=== PATIENT | male | born 1965 | race Caucasian/White ===

== ENCOUNTER 2016-12-27 18:36 | Emergency (ER) | payer SELFPAY ==
[~2016-12-27] VITALS: Ht 190.5 cm; Wt 97.7 kg
[2016-12-27 19:20] LABS: BLOOD UREA NITROGEN 11 mg/dL (7-18)
[2016-12-27 22:33] VITALS: BP 112/78
== END 2016-12-27 22:34 | disposition home or self-care (01) ==
LOC: ED 20:48
DX: R55 Syncope and collapse (principal)
CPT/HCPCS: 36415; 80048; 82040; 85025; 93005; 99284

== ENCOUNTER 2017-02-13 21:14 | Emergency (ER) | payer OTHER ==
[~2017-02-13] VITALS: Ht 190.5 cm; Wt 98.3 kg
[2017-02-13 21:17] VITALS: BP 114/76
== END 2017-02-13 23:30 | disposition home or self-care (01) ==
LOC: ED 23:20
DX: S80.11XA Contusion of right lower leg, initial encounter (principal); Z88.0 Allergy status to penicillin; W18.09XA Striking against other object with subsequent fall, initial encounter; Y93.89 Activity, other specified; Y92.89 Other specified places as the place of occurrence of the external cause; Y99.8 Other external cause status
CPT/HCPCS: 99284

== ENCOUNTER 2017-05-30 11:01 | Emergency (ER) | payer OTHER ==
[~2017-05-30] VITALS: Ht 190.5 cm; Wt 102.6 kg
[2017-05-30] MEDS ORDERED: ONDANSETRON 2MG/ML, 2ML ONE (12:13)
[2017-05-30] MEDS ORDERED: ACETAMINOPHEN 500 MG TABLET ONE (12:13)
[2017-05-30] MEDS ORDERED: KETOROLAC 30 MG/1 ML ONE (12:13)
[2017-05-30] MEDS ORDERED: KETOROLAC 30 MG/1 ML IVPush ONE (12:30)
[2017-05-30] MEDS ORDERED: ACETAMINOPHEN 500 MG TABLET PO ONE (12:30)
[2017-05-30] MEDS ORDERED: SODIUM CHLORIDE 0.9% 1,000ML IVBOLUS ONE (12:30)
[2017-05-30] MEDS ORDERED: ONDANSETRON 2MG/ML, 2ML IVPush ONE (12:30)
[2017-05-30] MEDS ORDERED: SODIUM CHLORIDE FLUSH 10ML SYR IVF ONE (12:30)
[2017-05-30] MEDS ORDERED: maalox/diphenh/lido/sucralfate 5 ML PO PRN (12:30)
[2017-05-30 12:34] LABS: BASOPHILS # (AUTO) 0.01 x10^3/uL (0-0.1); BASOPHILS % (AUTO) 0 % (0-1); EOSINOPHILS # (AUTO) 0.11 x10^3/uL (0-0.4); EOSINOPHILS % (AUTO) 2 % (1-7); LYMPHOCYTES # (AUTO) 0.98 x10^3/uL (1-3.4); LYMPHOCYTES % (AUTO) 13 % (22-44); MD NO; MEAN CORPUSCULAR HEMOGLOBIN 30.2 pg (27.5-34.5); MEAN CORPUSCULAR HGB CONC 33.9 g/dL (33.2-36.2); MEAN CORPUSCULAR VOLUME 88.8 fL (81-97); MEAN PLATELET VOLUME 9.1 fL (7.4-10.4); MONOCYTES # (AUTO) 0.76 x10^3/uL (0.2-0.8); MONOCYTES % (AUTO) 10 % (2-9); NEUTROPHILS # (AUTO) 5.92 x10^3/uL (1.8-6.8); NEUTROPHILS % (AUTO) 76 % (42-75); PLATELET COUNT 189 x10^3/uL (130-400); RED BLOOD COUNT 5.41 x10^6/uL (4.38-5.82); RED CELL DISTRIBUTION WIDTH 13.2 % (9.4-14.8)
[2017-05-30 12:39] LABS: RAPID INFLUENZA A POSITIVE (Negative); RAPID INFLUENZA B Negative (Negative)
[2017-05-30 12:44] LABS: ALBUMIN 3.7 g/dL (3.4-5.0); ANION GAP 7 mmol/L (5-15); CALCIUM 8.8 mg/dL (8.5-10.1); CHLORIDE 103 mmol/L (98-107)
[2017-05-30 12:47] LABS: ALANINE AMINOTRANSFERASE 29 U/L (12-78); ALKALINE PHOSPHATASE 82 U/L (45-117); BILIRUBIN,TOTAL 1.1 mg/dL (0.2-1.0); CREATININE 0.97 mg/dL (0.7-1.3); TOTAL PROTEIN 7.9 g/dL (6.4-8.2)
[2017-05-30 13:56] VITALS: BP 128/78
== END 2017-05-30 13:59 | disposition home or self-care (01) ==
LOC: ED 13:53
DX: J09.X2 Influenza due to identified novel influenza A virus with other respiratory manifestations (principal)
CPT/HCPCS: 36415; 71010; 80053; 85025; 87400; 96361; 96374; 96375; 99285; J1885; J2405; J7030

== ENCOUNTER 2017-09-09 18:49 | Emergency (ER) | payer OTHER ==
[~2017-09-09] VITALS: Ht 190.5 cm; Wt 106.8 kg
[2017-09-09] MEDS ORDERED: FAMOTIDINE 20 MG/2 ML IVP ONE (19:30)
[2017-09-09] MEDS ORDERED: SODIUM CHLORIDE FLUSH 10ML SYR IVF ONE (19:30)
[2017-09-09] MEDS ORDERED: FAMOTIDINE 20 MG/2 ML ONE (20:22)
[2017-09-09 20:40] LABS: BASOPHILS # (AUTO) 0.03 x10^3/uL (0-0.1); BASOPHILS % (AUTO) 0 % (0-1); EOSINOPHILS # (AUTO) 0.21 x10^3/uL (0-0.4); EOSINOPHILS % (AUTO) 3 % (1-7); LYMPHOCYTES # (AUTO) 2.28 x10^3/uL (1-3.4); LYMPHOCYTES % (AUTO) 30 % (22-44); MD NO; MEAN CORPUSCULAR HEMOGLOBIN 29.6 pg (27.5-34.5); MEAN CORPUSCULAR HGB CONC 33.5 g/dL (33.2-36.2); MEAN CORPUSCULAR VOLUME 88.3 fL (81-97); MEAN PLATELET VOLUME 10.2 fL (7.4-10.4); MONOCYTES # (AUTO) 0.64 x10^3/uL (0.2-0.8); MONOCYTES % (AUTO) 9 % (2-9); NEUTROPHILS # (AUTO) 4.34 x10^3/uL (1.8-6.8); NEUTROPHILS % (AUTO) 58 % (42-75); PLATELET COUNT 181 x10^3/uL (130-400); RED CELL DISTRIBUTION WIDTH 13.7 % (9.4-14.8)
[2017-09-09] MEDS ORDERED: MAALOX/HYOSCYAMINE/LIDOCAINE 45 ML BTL ONE (20:42)
[2017-09-09 20:50] LABS: ALANINE AMINOTRANSFERASE 23 U/L (12-78); ALBUMIN 3.5 g/dL (3.4-5.0); ANION GAP 10 mmol/L (5-15); CALCIUM 8.9 mg/dL (8.5-10.1); CHLORIDE 104 mmol/L (98-107); CREATININE 1.07 mg/dL (0.7-1.3)
[2017-09-09 20:52] LABS: ALKALINE PHOSPHATASE 69 U/L (45-117); BILIRUBIN,TOTAL 0.3 mg/dL (0.2-1.0); TOTAL PROTEIN 7.2 g/dL (6.4-8.2)
[2017-09-09] MEDS ORDERED: MAALOX/HYOSCYAMINE/LIDOCAINE 45 ML BTL PO ONE (21:00)
[2017-09-09 21:53] VITALS: BP 119/74
== END 2017-09-09 21:56 | disposition home or self-care (01) ==
LOC: ED 21:10
DX: K25.7 Chronic gastric ulcer without hemorrhage or perforation (principal); Z87.19 Personal history of other diseases of the digestive system
CPT/HCPCS: 36415; 76700; 80053; 83690; 85025; 96374; S0028

== ENCOUNTER → 2020-04-20 | Outpatient (CLI) | payer MEDICAID ==
[~2020-04-20] MED LIST: CYAN1TAB29 PO; OMEP20TA62 PO; PANT40TA6 PO; cholesterol med PO
== END | disposition home or self-care (01) ==
LOC: RAD 15:44
PROVIDERS: ATTEND Internal Medicine Gastroenterology
DX: R10.13 Epigastric pain (principal); R11.10 Vomiting, unspecified
CPT/HCPCS: 74220

== ENCOUNTER 2020-06-14 15:23 | Emergency (ER) | payer MEDICAID ==
[~2020-06-14] VITALS: Ht 190.5 cm; Wt 109.1 kg
[2020-06-14] MEDS ORDERED: DIPHENHYDRAMINE 50 MG/ML, 1ML ONE (15:59)
[2020-06-14] MEDS ORDERED: METOCLOPRAMIDE 5 MG/ML, 2ML ONE (15:59)
[2020-06-14] MEDS ORDERED: MORPHINE SULFATE 4 MG/ML, 1ML ONE (15:59)
[2020-06-14] MEDS ORDERED: METOCLOPRAMIDE 5 MG/ML, 2ML IVPush ONE (16:00)
[2020-06-14] MEDS ORDERED: MORPHINE SULFATE 4 MG/ML, 1ML IVPush PRN (16:00)
[2020-06-14] MEDS ORDERED: SODIUM CHLORIDE FLUSH 10ML SYR IVF ONE (16:00)
[2020-06-14] MEDS ORDERED: ONDANSETRON 2MG/ML, 2ML IVPush ONE (16:00)
[2020-06-14] MEDS ORDERED: DIPHENHYDRAMINE 50 MG/ML, 1ML IVPush ONE (16:00)
[2020-06-14 16:18] LABS: BASOPHILS % (AUTO) 1 % (0-1); EOSINOPHILS % (AUTO) 3 % (1-7); LYMPHOCYTES % (AUTO) 16 % (22-44); MEAN CORPUSCULAR HEMOGLOBIN 30.1 pg (27.5-34.5); MEAN CORPUSCULAR HGB CONC 33.7 g/dL (33.2-36.2); MEAN PLATELET VOLUME 10.1 fL (7.4-10.4); MONOCYTES % (AUTO) 8 % (2-9); NEUTROPHILS % (AUTO) 72 % (42-75); PLATELET COUNT 189 x10^3/uL (130-400); RED BLOOD COUNT 4.84 x10^6/uL (4.38-5.82); RED CELL DISTRIBUTION WIDTH 13.6 % (9.4-14.8)
[2020-06-14 16:19] LABS: MD NO
[2020-06-14 16:29] LABS: ALANINE AMINOTRANSFERASE 35 U/L (12-78); ALBUMIN 3.6 g/dL (3.4-5.0); ANION GAP 7 mmol/L (5-15); CALCIUM 9.2 mg/dL (8.5-10.1); CHLORIDE 107 mmol/L (98-107); CREATININE 1.11 mg/dL (0.7-1.3)
[2020-06-14 16:32] LABS: ALKALINE PHOSPHATASE 75 U/L (45-117); BILIRUBIN,TOTAL 0.6 mg/dL (0.2-1.0); TOTAL PROTEIN 6.8 g/dL (6.4-8.2)
--- NOTE | 2020-06-14 16:48 | NUR ---
PT'S GIRLFRIEND IRMA CALLED, , ABLE TO PICK PT UP IF HE IS DISCHARGED.
--- NOTE | 2020-06-14 16:49 | NUR ---
PT TO CT VIA [facility].
[2020-06-14] MEDS ORDERED: OMNIPAQUE 350 MG/ML, 100ML BOTTLE ONE (17:08)
[2020-06-14 17:43] VITALS: BP 111/73
--- NOTE | 2020-06-14 18:04 | NUR ---
Patient given discharge instructions and they have confirmed that they understand the instructions. Patient ambulatory with steady gait.
== END 2020-06-14 18:05 | disposition home or self-care (01) ==
LOC: ED 17:55
DX: R10.13 Epigastric pain (principal); R11.2 Nausea with vomiting, unspecified; I10 Essential (primary) hypertension; E78.5 Hyperlipidemia, unspecified; Z90.49 Acquired absence of other specified parts of digestive tract
CPT/HCPCS: 36415; 71045; 74177; 80053; 83690; 85025; 96374; 96375; 99285; J1200; J2270; J2765; Q9967